=== PATIENT | female | born 1950 | race Native Hawaiian/Other Pacific Islander ===

== ENCOUNTER 2019-06-06 15:25 | Outpatient (CLI) | payer OTHER | END 2019-06-06 20:31 | disposition home or self-care (01) | LOC: RAD 15:25 | DX: G89.4 Chronic pain syndrome (principal); F41.8 Other specified anxiety disorders; Z79.899 Other long term (current) drug therapy; K21.9 Gastro-esophageal reflux disease without esophagitis; R05 Cough ==